=== PATIENT | male | born 1975 | race Caucasian/White ===

== ENCOUNTER → 2016-10-24 | Outpatient (REF) | payer MEDICARE, MEDICAID ==
[~2016-10-24] MED LIST: CLIN300C2 PO; DEPA500T; DOXY75CA3 PO; FLEXERIL; IBUP80TA PO; KLON1TAB PO; LITH300T2; LITH450T; NORCOTAB PO; PERC5TAB8; QUET30TA; ROXI1TAB2 PO; SERO400T PO; XANA2TAB; XANA2TAB2
[2016-10-24 15:41] LABS: MEAN CORPUSCULAR VOLUME 88.6 fl (80.0-96.0); RED CELL DISTRIBUTION WIDTH 12.8 % (11.5-14.5); WHITE BLOOD COUNT 6.7 K/mm3 (4.0-10.0)
[2016-10-24 16:02] LABS: ALBUMIN/GLOBULIN RATIO 1.21 (1.00-1.93); ALKALINE PHOSPHATASE 106 U/L (45-117); ALT/SGPT 25 U/L (12-78); ANION GAP 10 MEQ/L (8-16); AST/SGOT 24 U/L (15-37); BILIRUBIN,TOTAL 0.4 MG/DL (0.2-1.0); BLOOD UREA NITROGEN 7 MG/DL (7-18); CALCIUM LEVEL 8.2 MG/DL (8.5-10.1); CARBON DIOXIDE LEVEL 27 MEQ/L (21-32); CHLORIDE LEVEL 100 MEQ/L (98-107); CHOLESTEROL LEVEL 177 MG/DL (<200); CREATININE FOR GFR 0.94 MG/DL (0.70-1.30); FERRITIN 92 NG/ML (26-388); GLOMERULAR FILTRATION RATE > 60.0 (>60); GLUCOSE, FASTING 79 MG/DL (70-105); MAGNESIUM LEVEL 1.9 MG/DL (1.8-2.4); PERCENT SATURATION 28.9 % (19.7-37.4); POTASSIUM SERUM 3.5 MEQ/L (3.5-5.1); SODIUM LEVEL 137 MEQ/L (136-145); TOTAL IRON BINDING CAPACITY 350 UG/DL (250-450); TOTAL PROTEIN 7.3 GM/DL (6.4-8.2); TRIGLYCERIDES LEVEL 126 MG/DL (<150)
== END ==
LOC: M SFHCLACO 07:54
PROVIDERS: ATTEND Physician Assistant
DX: E61.2 Magnesium deficiency (principal); D50.9 Iron deficiency anemia, unspecified; E78.2 Mixed hyperlipidemia

== ENCOUNTER 2017-05-24 17:03 | Emergency (ER) | payer MEDICARE, MEDICAID ==
[~2017-05-24] VITALS: Ht 177.8 cm; Wt 82.7 kg
[2017-05-24] MEDS ORDERED: QUET300T49 (17:21)
[2017-05-24] MEDS ORDERED: LIDO1OIN2 (17:21)
[2017-05-24] MEDS ORDERED: CYCL10TA (17:21)
[2017-05-24] MEDS ORDERED: CLON1TAB (17:21)
[2017-05-24] MEDS ORDERED: NORCO, ANEXSIA 5/325MG TABLET (HYDROcodone/ACETAMINOPHEN) PO ONE (18:30)
[2017-05-24] MEDS ORDERED: METHOCARBAMOL 500 MG TAB PO ONE (18:30)
[2017-05-24] MEDS ORDERED: IBUPROFEN 800 MG TAB PO ONE (18:30)
[2017-05-24] MEDS ORDERED: NORCOTAB PO (19:25)
[2017-05-24] MEDS ORDERED: IBUP80TA PO (19:25)
[2017-05-24] MEDS ORDERED: ROBA500T PO (19:25)
[2017-05-24 19:29] VITALS: BP 139/81
--- NOTE | 2017-05-24 19:50 | REP ---
REASON: Pain after trauma. COMPARISON 01/17/2015 Transpedicular screw again seen at L5 and S1 status quo. Vertebral body height and alignment is unchanged. There is a minimal grade 1, L5 upon S1 spondylolisthesis which is unchanged. There is L5-S1 disc space narrowing status quo. Mild posterior disc space narrowing is seen at all other levels. Vertebral body height and alignment is essentially unchanged. IMPRESSION: Stable chronic changes as described above. Signed by Ozzy Del Rio DO 05/25/2017 11:27 A
== END 2017-05-24 19:33 | disposition home or self-care (01) ==
LOC: M ED 17:03
DX: M54.31 Sciatica, right side (principal); J45.909 Unspecified asthma, uncomplicated; F31.9 Bipolar disorder, unspecified; F17.210 Nicotine dependence, cigarettes, uncomplicated; Z88.1 Allergy status to other antibiotic agents; Z88.8 Allergy status to other drugs, medicaments and biological substances; Z88.4 Allergy status to anesthetic agent; Z79.899 Other long term (current) drug therapy

== ENCOUNTER 2018-09-30 11:03 | Emergency (ER) | payer MEDICARE, BC, MEDICAID ==
[2018-09-30] MEDS: NORCO, ANEXSIA 5/325MG TABLET (HYDROcodone/ACETAMINOPHEN) PO (12:55)
== END 2018-09-30 13:52 | disposition home or self-care (01) ==
LOC: M ED 11:03
DX: M54.9 Dorsalgia, unspecified (principal); M89.8X8 Other specified disorders of bone, other site; J45.909 Unspecified asthma, uncomplicated; F41.9 Anxiety disorder, unspecified; F31.9 Bipolar disorder, unspecified; F17.200 Nicotine dependence, unspecified, uncomplicated; Z88.0 Allergy status to penicillin; Z88.8 Allergy status to other drugs, medicaments and biological substances; Z79.899 Other long term (current) drug therapy
CPT/HCPCS: 72040